=== PATIENT | male | born 1950 | race Caucasian/White ===

== ENCOUNTER 2019-11-10 19:04 | Emergency (ER) | payer MEDICAID, OTHER ==
[~2019-11-10] VITALS: Ht 170.2 cm; Wt 67.3 kg
[2019-11-10 19:17] VITALS: BP 138/77
== END 2019-11-10 20:28 | disposition home or self-care (01) ==
LOC: ER 19:05
DX: R22.32 Localized swelling, mass and lump, left upper limb (principal); F17.200 Nicotine dependence, unspecified, uncomplicated
CPT/HCPCS: 99281

== ENCOUNTER 2021-05-16 15:48 | Emergency (ER) | payer MEDICARE ==
[~2021-05-16] VITALS: Ht 170.2 cm; Wt 69.1 kg
[2021-05-16 15:50] VITALS: BP 141/94
[2021-05-16] MEDS ORDERED: TETanus/Pertussis (Acell)/Diphther VAC/PF (Tdap-Adult) 0.5ml syringe IMVAC ONE (17:10)
[2021-05-16] MEDS ORDERED: CEPH-585 PO (18:37)
[2021-05-16] MEDS ORDERED: HYDR-3965 PO (18:37)
== END 2021-05-16 19:18 | disposition home or self-care (01) ==
LOC: ER 15:49
DX: S61.011A Laceration without foreign body of right thumb without damage to nail, initial encounter (principal); Z79.2 Long term (current) use of antibiotics; Z79.899 Other long term (current) drug therapy; Z87.891 Personal history of nicotine dependence; Z72.89 Other problems related to lifestyle; W26.8XXA Contact with other sharp object(s), not elsewhere classified, initial encounter; Y93.89 Activity, other specified; Y92.89 Other specified places as the place of occurrence of the external cause; Y99.8 Other external cause status
CPT/HCPCS: 12001; 73130; 90471; 90715; 99283

== ENCOUNTER 2021-06-10 08:01 | Day surgery (SDC) | payer MEDICARE, MEDICAID ==
[2021-06-02 15:52] LABS: BASOPHILS # (AUTO) 0.1 X10'3 (0-0.2); BASOPHILS % (AUTO) 0.6 % (0-1); EOSINOPHILS # (AUTO) 0.3 X10'3 (0-0.9); EOSINOPHILS % (AUTO) 2.8 % (0-6); LYMPHOCYTES # (AUTO) 1.7 X10'3 (1.1-4.8); MEAN CORPUSCULAR HEMOGLOBIN 32.3 PG (27.0-31.0); MEAN CORPUSCULAR HGB CONC 33.7 g/dL (33.0-36.5); MEAN PLATELET VOLUME 7.8 FL (7.4-10.4); MONOCYTES # (AUTO) 0.8 X10'3 (0-0.9); MONOCYTES % (AUTO) 8.8 % (2-12); NEUTROPHILS # (AUTO) 6.5 X10'3 (1.8-7.7); NEUTROPHILS % (AUTO) 69.8 % (42-75); PRE OP HEMATOCRIT 41.2 % (42.0-52.0); PRE OP HEMOGLOBIN 13.9 g/dL (14.0-17.9); PRE OP PLATELET COUNT 299 X10'3 (140-440); RED CELL DISTRIBUTION WIDTH 12.2 % (11.5-14.5)
[2021-06-02 16:00] LABS: PARTIAL THROMBOPLASTIN TIME 30 SECONDS (22-32)
[2021-06-02 16:08] LABS: ALBUMIN 3.3 G/DL (3.4-5.0); ALBUMIN/GLOBULIN RATIO 0.8 (1.1-1.5); ALKALINE PHOSPHATASE 98 IU/L (46-116); BLOOD UREA NITROGEN 18 MG/DL (7-18); BUN/CREATININE RATIO 12.9 (5.4-32.0); CHLORIDE 103 MMOL/L (99-107); CREATININE 1.39 MG/DL (0.60-1.10); PRE OP ALT 31 U/L (30-65); PRE OP ANION GAP 0 (8-16); PRE OP AST 14 U/L (10-37); PRE OP BILIRUB, TOTAL 0.2 MG/DL (0.0-1.0); PRE OP GLUCOSE 102 MG/DL (70-104); PRE OP POTASSIUM 4.1 MMOL/L (3.4-5.1); PRE OP SODIUM 136 MMOL/L (135-145); TOTAL CARBON DIOXIDE 32.6 MMOL/L (24-32); TOTAL PROTEIN 7.2 G/DL (6.4-8.2); eGFR 51 ML/MIN
[~2021-06-10] VITALS: Ht 170.2 cm; Wt 97.3 kg
[~2021-06-10 08:01] MED LIST: BUPIVAcaine/PF 2.5 mg/ml (0.25%) 30ml vial ONE; CEPH-585 PO; HYDR-3965 PO; ceFAZolin 2gm in dextrose, iso 50 ML IV ONE; famotidine 20mg tablet PO ONE; ringers solution, lacted 1,000 ML IV SCH
[2021-06-10 08:30] VITALS: BP 128/81
[2021-06-10] MEDS ORDERED: PER5325T PO (08:47)
[2021-06-10] MEDS ORDERED: midazolam 1 mg/ML 2ml injection ONE (10:11)
[2021-06-10] MEDS ORDERED: fentaNYL/PF 50MCG/1 ML 2ML syringe ONE (10:11)
[2021-06-10 10:50] VITALS: BP 127/84
--- NOTE | 2021-06-10 10:50 | NUR ---
Received from OR via , accompanied by Anesthesiologist and report given by Anesthesiolgist. PATIENT WAKING UP, DENIES PAIN, V/S WNL, NEUROVASCULAR CHECKS INTACT, DRESSING TO RIGHT WRIST CDI.
[2021-06-10 11:00] VITALS: BP 129/81
[2021-06-10 11:10] VITALS: BP 121/78
[2021-06-10 11:20] VITALS: BP 124/74
[2021-06-10 11:30] VITALS: BP 122/76
== END 2021-06-10 11:30 | disposition home or self-care (01) ==
LOC: PAS 08:01
PROVIDERS: ATTEND Orthopaedic Surgery Hand Surgery
DX: S66.221A Laceration of extensor muscle, fascia and tendon of right thumb at wrist and hand level, initial encounter (principal); Z79.01 Long term (current) use of anticoagulants; Z79.899 Other long term (current) drug therapy; Z98.890 Other specified postprocedural states; Z72.89 Other problems related to lifestyle; Z20.822 Contact with and (suspected) exposure to COVID-19; X58.XXXA Exposure to other specified factors, initial encounter; Y93.89 Activity, other specified; Y92.89 Other specified places as the place of occurrence of the external cause; Y99.8 Other external cause status
CPT/HCPCS: 26418; 36415; 80053; 82948; 85025; 85610; 85730; 93005; J2250; J3010; J3490; U0003; U0005; Z7506; Z7512; A4215; A4618; A7000; J7120

== ENCOUNTER 2022-08-21 14:41 | Emergency (ER) | payer MEDICARE, MEDICAID ==
[~2022-08-21] VITALS: Ht 170.2 cm; Wt 59.1 kg
[~2022-08-21 14:41] MED LIST changes: +AMOX-580 PO; -BUPIVAcaine/PF 2.5 mg/ml (0.25%) 30ml vial ONE; -CEPH-585 PO; -HYDR-3965 PO; +LOP25T PO; +PANT-47 PO; +POTA20TA34 PO; -ceFAZolin 2gm in dextrose, iso 50 ML IV ONE; -famotidine 20mg tablet PO ONE; -ringers solution, lacted 1,000 ML IV SCH
[2022-08-21 15:22] VITALS: BP 93/57
[2022-08-21] MEDS ORDERED: TRAM50TA2 PO (16:19)
[2022-08-21] MEDS ORDERED: HYDROcodone/acetaminophen 10/325mg tab PO ONE (16:20)
== END 2022-08-21 16:46 | disposition home or self-care (01) ==
LOC: ER 14:41
DX: T81.89XA Other complications of procedures, not elsewhere classified, initial encounter (principal); G89.18 Other acute postprocedural pain; Z79.1 Long term (current) use of non-steroidal anti-inflammatories (NSAID)
CPT/HCPCS: 99283

== ENCOUNTER 2025-05-16 14:20 | Emergency (ER) | payer MEDICARE, MEDICAID ==
[~2025-05-16] VITALS: Ht 170.2 cm; Wt 64.6 kg
[2025-05-16 14:29] VITALS: BP 146/92; PULSE 75; RESP 18; TEMP 98; O2SAT 99
--- NOTE | 2025-05-16 15:38 | RADIOLOGY REPORT ---
CLINICAL INDICATION: WRIST PAIN TECHNIQUE: DI WRIST, COMPLETE (3VW MIN) Comparison: None FINDINGS/IMPRESSION: : Bony demineralization. Questionable nondisplaced distal scaphoid body fracture. Correlate with point tenderness in this location. 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 Degenerative change of the radiocarpal joint. Soft tissue swelling about the distal right forearm into the right wrist. There appears to be a soft tissue ulceration or wound about the dorsal aspect of the right wrist. Correlate with clinical exam.
--- NOTE | 2025-05-16 15:44 | RADIOLOGY REPORT ---
CLINICAL INDICATION: HAND PAIN TECHNIQUE: DI HAND, COMPLETE (3VW MIN) Comparison: DI WRIST, COMPLETE (3VW MIN) on DOS: 05/16/25, HAND, COMPLETE (3VW MIN) on DOS: 05/16/21 FINDINGS/IMPRESSION: : Questionable nondisplaced distal scaphoid fracture. Bony demineralization. Bony demineralization. Degenerative changes of the interphalangeal joints with osteophyte formation and mild joint space narrowing. Soft tissue swelling about the dorsum of the right hand. No radiopaque foreign body.
[2025-05-16] MEDS ORDERED: HYDR-3965 PO (16:12)
[2025-05-16] MEDS: HYDROcodone/acetaminophen 5mg/325mg tablet PO ONE (16:13)
--- NOTE | 2025-05-16 16:16 | Physician Documentation ---
History of Present Illness ~ Chief Complaint: Hand pain Stated Complaint: R ARM PAIN Time Seen by MD: 14:36 OK to notify your PCP?: Yes Source: patient Mode of Arrival: POV Exam Limitations: no limitations HPI 75-year-old male presents for right hand pain since Sunday afternoon working on a hydraulic pump which slipped and crushed his hand. Does have an abrasion to the top of his right hand. And there is significant swelling to the right wrist and hand. Has not taken any medications for the pain prior to arrival. Is able to make a fist. Tetanus within 5 years: Yes Medication Reconciliation Allergies: Coded Allergies: No Known Allergies (Unverified , 05/16/25) Scheduled Amox Tr/Potassium Clavulanate 875/125 MG (Augmentin 875/125 MG), 1 TAB PO BID Metoprolol Tartrate* (Lopressor tablet*), 25 MG PO Q12H Pantoprazole Sodium (PROTONIX tablet), 40 MG PO DAILY Potassium Bicarbonate/Cit AC (Effer-K 20 Meq Tablet Eff), 20 MEQ PO DAILY Past Medical History Past Medical History: GI Bleed, Peptic Ulcer Disease, Kidney Stones Past Surgical History: abdominal surgery, orthopedic surgeries Patient History: Patient reports no known family medical history. Alcohol Use: Occasionally Drug Use: none Lives with: Spouse Lives In: Home Occupation: employed Review of Systems All Other Systems at this time: Reviewed and Negative Physical Exam Vital Signs: RN Vital Signs have been reviewed: Yes, Temperature: 98.0, Source: Oral, Heart Rate: 75, Respiratory Rate: 18, BP: 146/92, Pulse Oximetry: 99, Weight: 64.600 Oxygen Flow Rate: 0 Pulse Oximetry Reflects: adequate oxygenation Physical Exam General: Alert, no apparent distress. HEENT: PERRL, EOMI, no injection, moist mucous membranes. Neck: Full range of motion. Respiratory: Lungs clear, no respiratory distress. Chest: No accessory muscle use. Cardiovascular: Regular rate and rhythm, no murmurs. Gastrointestinal: Soft, nontender, nondistended. Bowels sounds present. Extremities: Decreased range motion in right wrist. Good CSM, good pulses good sensation. Edema to right wrist and into right hand. Tenderness to palpation over anatomical snuffbox. Pain with wrist pronation and axial loading of the thumb. There is also tenderness to palpation on the radial side of the carpal tunnel. Neurologic: Oriented x4. Psychiatric: Normal mood and affect. Skin: Abrasion to the top of the right hand. Progress Results/Orders Reviewed/noted all lab results: Yes Results/Orders Orders - SYLVIA BONILLA Ortho Orders (05/16/25 ) Completed Orders - SYLVIA BONILLA TISSUE INSERTER Hydrocodone/Apap 5/325mg Tab (Emerson 5/32 (05/16/25 16:05) Vital Signs 05/16/25 14:29 Temp 98.0 Pulse 75 Resp 18 B/P (MAP) 146/92 Pulse Ox 99 O2 Flow Rate 0 EKG/XRAY/CT/US/VASC/MRI Bone/Soft Tissue X-Ray (Ext.) : Additional Comment Right hand and wrist x-rays as interpreted by me shows; no joint effusion, no dislocation, or foreign body. There is some soft tissue swelling and possible scaphoid fracture. Medical Decision Making Additional info obtained from: old records, family Findings He has had right hand pain and swelling for 3 days after sustaining a crush injury to that hand. He does have a small abrasion of the top which does not need any closure. We cleaned up the wound and applied some bacitracin and a nonadherent bandage. The x-ray shows possible scaphoid fracture and to correlate with exam. Physical exam shows tenderness over the anatomical snuffbox as well as pain on pronation of the wrist. I have placed him in a thumb spica splint in the meantime as well as educated him to get repeat x-rays done in 10 14 days to confirm the presence of the fracture. I have given him Emerson for pain as well as prescription to go home. We reviewed home instructions as well as discharge instructions. Wrist Diff Dx:Considerations: Include: Arthritis, Gout, Carpal tunnel snydrome, Dislocation, Fracture-radius, Fracture-ulna, Neurovascular injury, Open fracture Additional Comment Compartment syndrome, osteomyelitis Departure Disposition: 01 HOME / SELF CARE / HOMELESS Impression: Primary Impression: Fracture of hand Condition: Stable Discharge Instructions: Fracture, Hand Additional Instructions: Please keep splint clean and dry. Get repeat x-rays of your right wrist in 10- 14 days to confirm the diagnosis of scaphoid fracture. Follow up with her primary care provider in the next week and return back here for any new or worsening symptoms. Ret, ice/heat, and keep arm elevated above the level of the heart to help reduce swelling and you can use ibuprofen or Tylenol for pain. Take care not to exceed 4000 mg of Tylenol within a 24 hour period. Referrals: NO PRIMARY CARE PROVIDER (PCP) Prescriptions Hydrocodone Bit/Acetaminophen 5/325 MG (Emerson 5/325 MG) 5 Mg/325 Mg Tablet 1 TAB PO TID PRN PRN for pain for 5 Days, #15 TAB Prov: SYLVIA BONILLA 05/16/25 Education Educated: Patient Educated regarding: diagnosis, treatment, prognosis, need for follow up Additional Comment Medical Screen Exam This patient recieved a medical screening examination. After reviewing the individual's medical complaints with presenting symptoms and performing an appropriate physical examination, it was determined that no immediate life- threatening emergency medical condition is present. This individual is also not a women having contractions. Signature Scribe Signature: . Attestation: Scribed for Sylvia Bonilla by Sylvia Wilson NP . 05/16/25 16:26 Parts of this note were created using [employer] voice recognition software program. While efforts were made to correct any mistakes made by this voice recognition software program, nonsensical phrases may remain in this note. In addition, there may be errors and syntax, grammar, content and spelling. SYLVIA BONILLA May 16, 2025 16:16
== END 2025-05-16 16:49 | disposition home or self-care (01) ==
LOC: ER 14:21
DX: S62.91XA Unspecified fracture of right hand, initial encounter for closed fracture (principal); S60.511A Abrasion of right hand, initial encounter; Z87.442 Personal history of urinary calculi; Z72.89 Other problems related to lifestyle; Z98.890 Other specified postprocedural states; Z87.11 Personal history of peptic ulcer disease; Z79.899 Other long term (current) drug therapy; W01.0XXA Fall on same level from slipping, tripping and stumbling without subsequent striking against object, initial encounter; Y93.89 Activity, other specified; Y92.89 Other specified places as the place of occurrence of the external cause; Y99.8 Other external cause status
CPT/HCPCS: 29125; 73110; 73130; 99284; A4565; A6258; A6446; A6449; J7030